=== PATIENT | female | born 1965 | race Two or more races ===

== ENCOUNTER 2018-07-17 03:41 | Emergency (ER) | payer OTHER ==
[~2018-07-17] VITALS: Ht 149.9 cm; Wt 60.6 kg
[2018-07-17] MEDS ORDERED: ONDANSETRON 2MG/ML, 2ML IVPush ONE (04:00)
[2018-07-17] MEDS ORDERED: SODIUM CHLORIDE FLUSH 10ML SYR IVF ONE (04:00)
[2018-07-17] MEDS ORDERED: MORPHINE SULFATE 4 MG/ML, 1ML ONE ×2 (04:02→05:11)
[2018-07-17] MEDS ORDERED: ONDANSETRON 2MG/ML, 2ML ONE (04:02)
[2018-07-17] MEDS: MORPHINE SULFATE 4 MG/ML, 1ML IVPush PRN ×2 (04:07→05:12)
--- NOTE | 2018-07-17 04:12 | NUR ---
PT PRESENTED WITH C/O ABD PAIN WITH N/V X PAST 2 HOURS. MONITORS APPLIED, SIDERAILS UP X2, CALL LIGHT WITHIN REACH, IV SITE STARTED, LABS DRAWN, PT MEDICATED PER MAR, URINE SAMPLE TAKEN TO LAB
[2018-07-17] MEDS ORDERED: LISI5TAB7 PO (04:14)
[2018-07-17 04:18] LABS: BASOPHILS # (AUTO) 0.03 x10^3/uL (0-0.1); BASOPHILS % (AUTO) 0 % (0-1); EOSINOPHILS # (AUTO) 0.06 x10^3/uL (0-0.4); EOSINOPHILS % (AUTO) 1 % (1-7); LYMPHOCYTES # (AUTO) 1.26 x10^3/uL (1-3.4); LYMPHOCYTES % (AUTO) 15 % (22-44); MD NO; MEAN CORPUSCULAR HEMOGLOBIN 32.2 pg (27.0-34.8); MEAN CORPUSCULAR HGB CONC 35.3 g/dL (32.4-35.8); MEAN CORPUSCULAR VOLUME 91.1 fL (80-100); MEAN PLATELET VOLUME 9.2 fL (7.4-10.4); MONOCYTES # (AUTO) 0.49 x10^3/uL (0.2-0.8); MONOCYTES % (AUTO) 6 % (2-9); NEUTROPHILS # (AUTO) 6.63 x10^3/uL (1.8-6.8); NEUTROPHILS % (AUTO) 78 % (42-75); PLATELET COUNT 225 x10^3/uL (130-400); RED BLOOD COUNT 4.89 x10^6/uL (3.82-5.3); RED CELL DISTRIBUTION WIDTH 12.3 % (9.6-15.2)
[2018-07-17 04:21] LABS: ALANINE AMINOTRANSFERASE 69 U/L (12-78); ALBUMIN 4.1 g/dL (3.4-5.0); ANION GAP 9 mmol/L (5-15); CALCIUM 9.1 mg/dL (8.5-10.1); CHLORIDE 105 mmol/L (98-107); CREATININE 1.17 mg/dL (0.55-1.02)
[2018-07-17 04:26] LABS: CULTURE INDICATED? NO; MICROSCOPIC AUTO
[2018-07-17 04:26] LABS: ALKALINE PHOSPHATASE 105 U/L (45-117); BILIRUBIN,TOTAL 1.1 mg/dL (0.2-1.0); TOTAL PROTEIN 7.6 g/dL (6.4-8.2); TROPONIN I < 0.015 ng/mL (0.000-0.045)
--- NOTE | 2018-07-17 04:47 | NUR ---
PT TO CT
[2018-07-17] MEDS ORDERED: OMNIPAQUE 350 MG/ML, 100ML BOTTLE ONE (04:57)
[2018-07-17 05:09] VITALS: BP 133/75
--- NOTE | 2018-07-17 05:12 | NUR ---
PT RESTING ON GURNEY, NOTED PT MOANING, PT STATED "IT'S GETTING WORSE", PT MEDICATED WITH PRN PAIN MEDICATION ORDER, MONITORS IN PLACE, CALL LIGHT WITHIN REACH, AWAITING CT RESULT
[2018-07-17] MEDS ORDERED: KETOROLAC 30 MG/1 ML ONE (05:40)
[2018-07-17] MEDS ORDERED: KETOROLAC 30 MG/1 ML IVPush ONE (06:00)
== END 2018-07-17 06:26 | disposition home or self-care (01) ==
LOC: ED 05:30
DX: R10.32 Left lower quadrant pain (principal); R11.2 Nausea with vomiting, unspecified
CPT/HCPCS: 36415; 74177; 80053; 81001; 83690; 84484; 85025; 93005; 96374; 96375; 96376; 99284; J1885; J2405; Q9967